=== PATIENT | female | born 1955 | race Caucasian/White ===

== ENCOUNTER → 2023-09-29 17:30 | Outpatient (REF) | payer MEDICARE, SELFPAY | LOC: MRI 3T 17:30 | PROVIDERS: ATTENDING PHYSICIAN Student in an Organized Health Care Education/Training Program | DX: R10.11 Right upper quadrant pain (principal); K83.8 Other specified diseases of biliary tract; R79.89 Other specified abnormal findings of blood chemistry | CPT/HCPCS: 74183; A9575 ==

== ENCOUNTER → 2023-10-29 15:50 | Outpatient (REF) | payer MEDICARE, SELFPAY | LOC: RAD 15:50 | PROVIDERS: ATTENDING PHYSICIAN Student in an Organized Health Care Education/Training Program | DX: J40 Bronchitis, not specified as acute or chronic (principal); R05.1 Acute cough | CPT/HCPCS: 71046 ==

== ENCOUNTER 2024-07-04 06:13 | Day surgery (SDC) | payer MEDICARE, SELFPAY ==
[2024-07-04 06:54] VITALS: BMI 26.2
[2024-07-04 06:58] VITALS: BP 139/85
[2024-07-04 07:02] LABS: Glucose - Point of Care 114 mg/dl (70-99)
[2024-07-04 08:58] VITALS: BP 119/80
[2024-07-04 09:00] VITALS: BP 115/86
[2024-07-04 09:15] VITALS: BP 110/80
[2024-07-04 09:25] VITALS: BP 101/90
[2024-07-04 09:30] VITALS: BP 131/78
== END 2024-07-04 09:40 | disposition home or self-care (01) ==
LOC: GI 06:13
PROVIDERS: ATTENDING PHYSICIAN Internal Medicine Gastroenterology
DX: K86.9 Disease of pancreas, unspecified (principal); K86.89 Other specified diseases of pancreas; K83.8 Other specified diseases of biliary tract
CPT/HCPCS: 43237; 82962

== ENCOUNTER → 2024-08-09 14:00 | Outpatient (REF) | payer MEDICARE, SELFPAY | LOC: WDC 14:00 | PROVIDERS: ATTENDING PHYSICIAN Student in an Organized Health Care Education/Training Program | DX: Z12.31 Encounter for screening mammogram for malignant neoplasm of breast (principal) | CPT/HCPCS: 77063; 77067 ==

== ENCOUNTER → 2024-08-18 08:27 | Outpatient (REF) | payer MEDICARE, SELFPAY | LOC: WDC 08:27 | PROVIDERS: ATTENDING PHYSICIAN Student in an Organized Health Care Education/Training Program | DX: R92.8 Other abnormal and inconclusive findings on diagnostic imaging of breast (principal) | CPT/HCPCS: 76642 ==

== ENCOUNTER → 2025-06-04 10:02 | Outpatient (REF) | payer MEDICARE, SELFPAY | LOC: WDC 10:02 | PROVIDERS: ATTENDING PHYSICIAN Surgery; FAMILY PHYSICIAN Student in an Organized Health Care Education/Training Program | DX: N63.10 Unspecified lump in the right breast, unspecified quadrant (principal); N63.11 Unspecified lump in the right breast, upper outer quadrant | CPT/HCPCS: 76642; 77061; 77065 ==

== ENCOUNTER → 2025-08-20 06:35 | Outpatient (REF) | payer MEDICARE, SELFPAY | LOC: MRI 06:35 | PROVIDERS: ATTENDING PHYSICIAN Student in an Organized Health Care Education/Training Program; FAMILY PHYSICIAN Student in an Organized Health Care Education/Training Program | DX: M25.562 Pain in left knee (principal) | CPT/HCPCS: 73721 ==